=== PATIENT | male | born 1940 | race Caucasian/White ===

== ENCOUNTER 2016-10-19 11:30 | Emergency (ER) | payer OTHER ==
[~2016-10-19] VITALS: Ht 167.6 cm; Wt 78.1 kg
[2016-10-19] MEDS ORDERED: LEVEMIR FL100 UNIT/M SC ×2 (11:47→12:12)
[2016-10-19 13:00] VITALS: BP 163/59
== END 2016-10-19 13:14 | disposition home or self-care (01) | DRG 639 ==
LOC: ED 11:30
DX: E11.65 Type 2 diabetes mellitus with hyperglycemia (principal); Z79.4 Long term (current) use of insulin; Z76.0 Encounter for issue of repeat prescription